=== PATIENT | male | born 1995 | race Caucasian/White ===

== ENCOUNTER 2021-10-20 00:57 | Emergency (ER) | payer SELFPAY ==
[2021-10-20] VITALS (7 sets, daily range): BP systolic 114–135; BP diastolic 65–83; PULSE 57–89; RESP 18; TEMP 36.7–36.8; O2SAT 95–99; BMI 31.7
--- NOTE | 2021-10-20 01:10 | CT_ITS ---
PROCEDURE INFORMATION: Exam: CT Abdomen And Pelvis Without Contrast Exam date and time: 10/20/2021 1:29 AM Age: 26 years old Clinical indication: Abdominal pain; Flank; Left; Patient HX: H/o kidney stonres; Additional info: Lt flank pain TECHNIQUE: Imaging protocol: Computed tomography of the abdomen and pelvis without contrast. Radiation optimization: All CT scans at this facility use at least one of these dose optimization techniques: automated exposure control; mA and/or kV adjustment per patient size (includes targeted exams where dose is matched to clinical indication); or iterative reconstruction. COMPARISON: No relevant prior studies available. FINDINGS: Lungs: No mass/infiltrate at either lung base. No pleural effusion. Liver: The liver is normal in size and attenuation. No intrahepatic biliary dilitation. Gallbladder and bile ducts: Normal. No calcified stones. No ductal dilation. Gallbladder wall thickness is normal. Pancreas: Normal. No ductal dilation. Spleen: Normal. No splenomegaly. Adrenal glands: Normal. No mass. Kidneys and ureters: Mild left hydronephrosis and left hydroureter. There is a 3 mm obstructing calculus identified at the left vesicoureteral junction. The right kidney and right ureter are felt to be unremarkable. Stomach and bowel: There is a small hiatal hernia above the gastroesophageal junction. No obstruction. There is fecalization of contents of the distal ileum. In absence of obstruction, this could be on the basis of small bowel bacterial overgrowth. There is some high density material present within the mid ileum. This could represent either contrast or ingested Pepto-Bismol. No mucosal thickening. Small bowel mesentery is normal. Appendix: Unremarkable. Intraperitoneal space: Unremarkable. No free air. No significant fluid collection. Vasculature: Unremarkable. No abdominal aortic aneurysm. Lymph nodes: Unremarkable. No enlarged lymph nodes. Urinary bladder: Unremarkable as visualized. Limited distention noted. Reproductive: Unremarkable as visualized. Bones/joints: Unremarkable. No acute fracture. Soft tissues: Unremarkable. IMPRESSION: 1. 3 mm obstructing calculus identified at the left vesicoureteral junction with mild left hydronephrosis and hydroureter. 2. Small hiatal hernia above the gastroesophageal junction. 3. Fecalization of contents of the distal ileum. In absence of obstruction this could be on the basis of small bowel bacterial overgrowth.
--- NOTE | 2021-10-20 01:29 | PC.NURSE ---
Pt gone to RAD
[2021-10-20 01:35] LABS: Basophils # 0.2 K/mm3 (0-0.2); Eosinophils # 0.3 K/mm3 (0.0-0.4); Hematocrit 44.9 % (42.0-52.0); Hemoglobin 15.5 g/dL (14.1-18.0); Lymphocytes # 1.9 K/mm3 (0.7-4.5); Lymphocytes % 11.7 % (10-50); Mean Corpuscular HGB Conc 34.5 g/dL (31.8-35.4); Mean Corpuscular Hemoglobin 31.3 pg (27.0-31.2); Mean Corpuscular Volume 90.6 fl (80-94); Mean Platelet Volume 8.1 fl (7.4-10.4); Monocytes # 0.6 K/mm3 (0.1-1.0); Monocytes % 3.4 % (1.7-9.3); Neutrophils % 81.8 % (37.0-80.0); Platelet Count 301 K/mm3 (142-424); Red Blood Count 4.96 M/mm3 (4.60-6.20); White Blood Count 15.9 K/mm3 (4.8-10.8)
--- NOTE | 2021-10-20 01:38 | PC.NURSE ---
Pt back from RAD
[2021-10-20 01:42] LABS: Alanine Aminotransferase 47 U/L (12-78); Albumin Level 4.3 g/dl (3.5-5.0); Albumin/Globulin Ratio 1.5 (1.1-1.8); Alkaline Phosphatase 72 U/L (38-126); Anion Gap 11.1 mEq/L (5-15); Aspartate Amino Transferase 36 U/L (17-59); Bilirubin,Total 0.5 mg/dl (0.2-1.3); Blood Urea Nitrogen 14 mg/dl (9-20); Calcium 9.5 mg/dl (8.4-10.2); Carbon Dioxide 27 mmol/L (22.0-30.0); Chloride 104 mmol/L (98-107); Creatinine Clearance Estimated 126 mL/min (50-200); Estimated Glomerular Filt Rate 72 ml/min (>60); GFR (African American) 87 ML/MIN (>60); Globulin 2.8 g/dL (1.3-3.2); Glucose 146 mg/dl (74-100); Potassium 4.1 mmoL/L (3.5-5.1); Sodium 138 mmol/L (136-145); Total Protein,Serum 7.1 g/dl (6.3-8.2)
[2021-10-20 01:44] LABS: Microscopic, Urine URINE MICROSCOPIC (MICROSCOPIC)
--- NOTE | 2021-10-20 01:46 | [facility].EDUROGM ---
ED Disposition Clinical Impression: Renal colic on left side Disposition: Home, Self-Care Condition on Discharge: Good Instructions: DI for Kidney Stones Additional Instructions: use meds and see pcp and urology Prescriptions: Tamsulosin HCl [Flomax 0.4mg capsule] 0.4 mg PO HS 10 Days #30 cap Transmission Status: Pending to [id number] Referrals: Star Glalo II, MD [Primary Care Provider] - Ryan Shelby MD [Staff Physician] - - Critical Care Critical Care Time: No Attestation: On 10/20/21, the high probability of a clinically significant, sudden or life threatening deterioration of the following system(s) required my full and direct attention, intervention and personal management. The time I documented below is in addition to time spent performing reported procedures but includes the following listed in this critical care notation. Medical Decision Making - Medical Records Medical records reviewed: Yes: I reviewed the patient's medical records. - Derik Inquiry Pt receiving controlled substance: No Vital Signs: 10/20/21 00:58 10/20/21 02:00 10/20/21 02:30 Temperature 98.1 F Temperature Source Oral Pulse Rate 57 L 67 Pulse Rate [Left Radial] 89 Respiratory Rate 18 Blood Pressure 120/72 116/70 Blood Pressure [Right Arm] 135/83 Blood Pressure Mean Blood Pressure Mean [Right Arm] 100 Blood Pressure Source [Right Arm] Manual Cuff/ Doppler 02 Sat by Pulse Oximetry 96 96 95 Oxygen Delivery Method Room Air Room Air Room Air 10/20/21 03:00 10/20/21 03:30 10/20/21 04:05 Temperature Temperature Source Pulse Rate 59 L 75 60 Pulse Rate [Left Radial] Respiratory Rate Blood Pressure 128/76 114/65 117/71 Blood Pressure [Right Arm] Blood Pressure Mean 79 Blood Pressure Mean [Right Arm] Blood Pressure Source [Right Arm] 02 Sat by Pulse Oximetry 99 98 99 Oxygen Delivery Method Room Air Room Air Room Air - Lab Data Lab results reviewed: Yes: I reviewed the patient's lab results. Lab Results 10/20/21 01:01: Urine Color Yellow, Urine Appearance Clear, Urine pH 5.5, Ur Specific [place] >= 1.030, Urine Protein Negative, Urine Glucose (UA) Negative, Urine Ketones Negative, Urine Blood Negative, Urine Nitrate Negative, Urine Bilirubin Negative, Urine Urobilinogen 0.2, Ur Leukocyte Esterase Negative, Urine WBC Occasional, Urine Bacteria Trace 10/20/21 01:24: WBC 15.9 H, RBC 4.96, Hgb 15.5, Hct 44.9, MCV 90.6, MCH 31.3 H, MCHC 34.5, RDW 13.0, Plt Count 301, MPV 8.1, Neut % (Auto) 81.8 H, Lymph % (Auto) 11.7, Walsh % (Auto) 3.4, Eos % (Auto) 2.0, Baso % (Auto) 1.0, Neut # (Auto) 13.0 H, Lymph # (Auto) 1.9, Walsh # (Auto) 0.6, Eos # (Auto) 0.3, Baso # (Auto) 0.2, Total Counted 100, Neutrophils % (Manual) 82 H, Lymphocytes % (Manual) 12, Monocytes % (Manual) 3, Eosinophils % (Manual) 2, Basophils % (Manual) 1.0, Platelet Estimate Normal, RBC Morphology Normal 10/20/21 01:24: Sodium 138, Potassium 4.1, Chloride 104, Carbon Dioxide 27, Anion Gap 11.1, BUN 14, Creatinine 1.20, Estimated Creat Clear 126, Estimated GFR 72, Est GFR ( Amer) 87, Glucose 146 H, Calcium 9.5, Total Bilirubin 0.5, AST 36, ALT 47, Alkaline Phosphatase 72, Total Protein 7.1, Albumin 4.3, Globulin 2.8, Albumin/Globulin Ratio 1.5 Result diagrams: 10/20/21 01:24 10/20/21 01:24 Orders (Tests/Meds): ED MEDICATIONS Generic Name Dose Route Start Last Admin Trade Name Freq PRN Reason Stop Dose Admin Sodium Chloride 1,000 mls @ 999 mls/hr 10/20/21 01:15 10/20/21 01:15 Sod Chlor 0.9% 1000ml Bag IV 10/20/21 02:15 999 mls/hr .Q1H1M ROBERT Administration Sodium Chloride 1,000 mls @ 999 mls/hr 10/20/21 04:00 10/20/21 03:57 Sod Chlor 0.9% 1000ml Bag IV 10/20/21 05:00 999 mls/hr .Q1H1M ROBERT Administration Sodium Chloride 10 ml 10/20/21 01:25 Sodium Chloride 0.9% 10ml Flush Syringe IV 11/19/21 01:24 NEEDED PRN Maintain IV Site Discontinued Medi
[2021-10-20 01:47] LABS: Appearance,Urine CLEAR (Clear); Bilirubin,Urine Negative (Negative); Blood, Urine Negative (Negative); Color,Urine YELLOW (Yellow); Glucose,Urine (UA) Negative (Negative); Ketones,Urine Negative (Negative); Leukocyte Esterase,Urine Negative (Negative); Nitrate,Urine Negative (Negative); PH,Urine 5.5 (5.0-8.5); Protein,Urine Negative (Negative); Specific Gravity, Urine >= 1.030 (1.005-1.030); Urobilinogen,Urine 0.2 EU/dl (0.2)
[2021-10-20 01:53] LABS: MANUAL DIFFERENTIAL MANUAL DIFFERENTIAL (MANUAL DIFF)
--- NOTE | 2021-10-20 02:15 | PC.NURSE ---
PT UPDATED WITH WAIT TIMES. NO CHANGES IN ASSMNT. PT REPORTS THAT PAIN HAS IMPROVED.
[2021-10-20 02:27] LABS: Bacteria,Urine Trace /lpf; WBC,Urine Occasional #/hpf (0-3)
[2021-10-20 02:31] LABS: Eosinophils % 2 % (0-3); Lymphocytes % 12 % (10-50); Monocytes % 3 % (2-9); Neutrophils % 82 % (42-76); Total Cells Counted 100
[2021-10-20 02:32] LABS: Platelet Estimate Normal; RBC Morphology Normal
--- NOTE | 2021-10-20 03:02 | PC.NURSE ---
Spoke with pt about expected wait times for [facility] to read scans. Pt was agreeable. No new needs at this time.
--- NOTE | 2021-10-20 03:47 | PC.NURSE ---
Called Radiology to check status of [facility]rad, still only assigned . She is chatting [facility] again.
--- NOTE | 2021-10-20 04:13 | PC.NURSE ---
PT UPDATED. PT STATES HE WILL BE LEAVING SOON HE NEEDS TO GO TO WORK. WILL CONTINUE TO MONITOR.
== END 2021-10-20 05:14 | disposition home or self-care (01) ==
PROVIDERS: Emergency Provider Emergency Medicine; PCP Radiology Radiation Oncology
DX: N23 Unspecified renal colic (principal)
CPT/HCPCS: 74176; 80053; 81001; 85007; 85025; 96361; 96374; 96375; 99285; J2405